=== PATIENT | female | born 1970 | race Caucasian/White ===

== ENCOUNTER → 2016-06-16 | Outpatient (CLI) | payer MEDICAID ==
[~2016-06-16] MED LIST: CLON0.253; ERYTPOW19; Pantoprazole Sodium Sesquihydr PO
[2016-06-16 17:23] LABS: Basophils # (auto) 0.1 uL; Basophils % (auto) 0.5 % (0.0-2.0); Eosinophils # (auto) 0.2 uL; Eosinophils % (auto) 1.9 % (0.0-7.0); Hematocrit 40.3 % (36.0-46.0); Hemoglobin 12.7 g/dL (12.2-16.2); Lymphocytes # (auto) 2.6 uL; Lymphocytes % (auto) 23.7 % (10.0-50.0); Mean Corpuscular Hemoglobin 29.2 pg (28.0-32.0); Mean Corpuscular Hgb Conc. 31.6 g/dL (32.0-36.0); Mean Corpuscular Volume 92.3 fL (80.0-100.0); Mean Platelet Volume 8.3 fL (7.4-10.4); Monocytes # (auto) 0.7 uL; Neutrophils # (auto) 7.4 uL; Neutrophils % (auto) 67.9 % (37.0-80.0); Platelet Count (auto) 372 10^3/uL (140-450); Red Cell Distribution Width 15.4 % (11.6-16.0); White Blood Cell 10.8 10^3/uL (4.4-10.8)
[2016-06-16 17:55] LABS: Albumin 3.3 g/dL (3.4-5.0); Bilirubin, Total 0.3 mg/dL (0.2-1.0); Calcium 8.6 mg/dL (8.5-10.1); Potassium 3.8 mmol/L (3.5-5.1); Total Protein 6.9 g/dL (6.4-8.2)
[2016-06-16 17:59] LABS: Urine Bilirubin Negative (Negative); Urine Color Yellow (Yellow); Urine Glucose Normal (Normal); Urine Ketone Negative (Negative); Urine Nitrite Negative (Negative); Urine RBC 1 /hpf (0 - 4); Urine Squamous Epithelial Cell FEW /hpf (<5); Urine Urobilinogen Normal (Negative); Urine pH 5.5 (5.0-8.0)
[2016-06-16 18:01] LABS: Urine Blood 1+ /uL (Negative)
== END | disposition home or self-care (01) ==
LOC: LAB 16:36
PROVIDERS: ATTEND Internal Medicine
DX: Z00.00 Encounter for general adult medical examination without abnormal findings (principal)
CPT/HCPCS: 36415; 80053; 80061; 81001; 84443; 85025

== ENCOUNTER 2016-07-11 11:25 | Observation (INO) | payer MEDICAID ==
[~2016-07-11] VITALS: Ht 162.6 cm; Wt 61.2 kg
[2016-07-11 14:16] LABS: Basophils # (auto) 0.4 uL; DEFINITIVE VIEW TRANSMISSION; Eosinophils # (auto) 0.1 uL; Eosinophils % (auto) 0.4 % (0.0-7.0); Hematocrit 43.1 % (36.0-46.0); Hemoglobin 14.3 g/dL (12.2-16.2); Lymphocytes # (auto) 2.8 uL; Lymphocytes % (auto) 19.4 % (10.0-50.0); Mean Corpuscular Hemoglobin 29.1 pg (28.0-32.0); Mean Corpuscular Hgb Conc. 33.3 g/dL (32.0-36.0); Mean Corpuscular Volume 87.6 fL (80.0-100.0); Mean Platelet Volume 8.4 fL (7.4-10.4); Monocytes # (auto) 0.6 uL; Monocytes % (auto) 3.8 % (0.0-12.0); Neutrophils # (auto) 10.8 uL; Neutrophils % (auto) 73.4 % (37.0-80.0); Platelet Count (auto) 457 10^3/uL (140-450); Red Cell Distribution Width 15.5 % (11.6-16.0); White Blood Cell 14.6 10^3/uL (4.4-10.8)
[2016-07-11 14:46] LABS: Albumin 3.7 g/dL (3.4-5.0); BUN/Creatinine Ratio 7.8; Bilirubin, Total 0.5 mg/dL (0.2-1.0); Calcium 9.3 mg/dL (8.5-10.1); Potassium 3.5 mmol/L (3.5-5.1); Total Protein 7.8 g/dL (6.4-8.2)
[2016-07-11 17:14] LABS: Amylase 35 U/L (25-115)
[2016-07-11] MEDS ORDERED: cefTRIAXone 1GM/50ML D5W 50 ML IV ONE (17:15)
[2016-07-11 17:18] LABS: INR 1.11 (0.9-1.15); Partial Thromboplastin Time 28.8 sec (22.64-33.71); Prothrombin Time 11.4 sec (9.37-12.3)
[2016-07-11] MEDS ORDERED: KETOROLAC TROMETH 30 MG/ML 1ML VIAL IV ONE (18:15)
[2016-07-11] MEDS ORDERED: SODIUM CHLORIDE 0.9% 1,000 ML IV ONE (18:45)
[2016-07-11] MEDS ORDERED: ALPRAZolam 0.5 MG TAB PO ONE (19:00)
[2016-07-11 19:02] VITALS: BP 92/42
== END 2016-07-11 20:16 | disposition home or self-care (01) | DRG 144 ==
LOC: ER 11:27 → OVERFLOW 16:34 → ER 20:16
PROVIDERS: ADMIT Family Medicine; ATTEND Family Medicine
DX: J20.9 Acute bronchitis, unspecified (principal); F41.9 Anxiety disorder, unspecified; M79.7 Fibromyalgia; F17.210 Nicotine dependence, cigarettes, uncomplicated; Z82.49 Family history of ischemic heart disease and other diseases of the circulatory system; M79.1 Myalgia
CPT/HCPCS: 36415; 71010; 80053; 82150; 83690; 83735; 85025; 85610; 85730; 87040; 96365; 96366; 96375; 99285; G0378; J0696; J1885; J7030

== ENCOUNTER 2017-01-18 10:04 | Inpatient (IN) | payer MEDICAID ==
[~2017-01-18] VITALS: Ht 167.6 cm; Wt 87.6 kg
[2017-01-18] MEDS ORDERED: PROCHLORPERAZINE EDISYLATE 5 MG/ML 2ML VIAL IV ONE (10:15)
[2017-01-18] MEDS ORDERED: HYDROmorphone HCL 2 MG/ML VL IV ONE (10:15)
[2017-01-18] MEDS ORDERED: PANTOPRAZOLE 40 MG/10 ML VIAL IV STA (10:15)
[2017-01-18] MEDS ORDERED: SODIUM CHLORIDE 0.9% 500 ML IVB ONE (10:15)
[2017-01-18 10:35] LABS: Basophils # (auto) 0.2 uL; Basophils % (auto) 1.4 % (0.0-2.0); Eosinophils # (auto) 0 uL; Eosinophils % (auto) 0.3 % (0.0-7.0); Hemoglobin 12.2 g/dL (12.2-16.2); Lymphocytes # (auto) 1.1 uL; Lymphocytes % (auto) 10.1 % (10.0-50.0); Mean Corpuscular Hemoglobin 37.4 pg (28.0-32.0); Mean Corpuscular Hgb Conc. 34.8 g/dL (32.0-36.0); Mean Corpuscular Volume 107.6 fL (80.0-100.0); Mean Platelet Volume 6.9 fL (7.4-10.4); Monocytes # (auto) 0.5 uL; Monocytes % (auto) 4.8 % (0.0-12.0); Neutrophils # (auto) 9.4 uL; Neutrophils % (auto) 83.4 % (37.0-80.0); Nucleated Red Blood Cells % 0.1 %; Platelet Count (auto) 330 10^3/uL (140-450); Red Cell Distribution Width 18.1 % (11.6-16.0); White Blood Cell 11.2 10^3/uL (4.4-10.8)
[2017-01-18 11:01] LABS: Albumin 3.2 g/dL (3.4-5.0); BUN/Creatinine Ratio 8.7; Bilirubin, Total 0.8 mg/dL (0.2-1.0); Calcium 7.7 mg/dL (8.5-10.1); Total Protein 6.9 g/dL (6.4-8.2)
[2017-01-18 11:05] LABS: Potassium 2.6 mmol/L (3.5-5.1)
[2017-01-18] MEDS ORDERED: POTASSIUM CHL 20MEQ/100ML 100 ML IV ONE (11:15)
[2017-01-18] MEDS ORDERED: DOCUSATE SOD 100 MG CAP PO PRN (13:00)
[2017-01-18] MEDS ORDERED: PHYTONADIONE (VIT K)10 MG/ML 1ML VIAL SUBCUT ONE (13:00)
[2017-01-18] MEDS ORDERED: ACETAMINOPHEN 325 MG TAB PO PRN (13:00)
[2017-01-18] MEDS ORDERED: PANTOPRAZOLE 40 MG/10 ML VIAL IV ONE (13:00)
[2017-01-18] MEDS ORDERED: NITROGLYCERIN 0.4 MG SL TAB SL PRN (13:00)
[2017-01-18] MEDS ORDERED: ALUM & MAG HYDROX-SIMETH LIQ(MAALOX) 30 ML PO PRN (13:00)
[2017-01-18] MEDS ORDERED: chlordiazePOXIDE HCL 25 MG CAP PO PRN (13:00)
[2017-01-18] MEDS ORDERED: DEXTROSE (50%) 50ML SYRG IV PRN (13:00)
[2017-01-18] MEDS ORDERED: LORazepam 2MG/ML-1ML VIAL IV PRN (13:00)
[2017-01-18] MEDS ORDERED: TEMAZEPAM 15 MG CAP PO PRN (13:00)
[2017-01-18] MEDS ORDERED: LEVOFLOXACIN 500MG 100 ML IV ONE (13:00)
[2017-01-18] MEDS ORDERED: ATENOLOL 25 MG TAB PO ONE (13:00)
[2017-01-18] MEDS ORDERED: THIAMINE INJ 100 MG, MULTIPLE VITAMIN 10 ML, FOLIC ACID 1 MG, MAGNESIUM SULF SDV 50% 8 ... IV SCH ×5 (13:00)
[2017-01-18] MEDS ORDERED: SODIUM CHLORIDE 0.9% 2,000 ML IV ONE (13:15)
[2017-01-18] MEDS: HYDROmorphone HCL 2 MG/ML VL IV PRN ×4 (13:38→22:48)
[2017-01-18] MEDS: ONDANSETRON HCL 4 MG/2 ML VIAL IV PRN ×3 (13:38→22:48)
[2017-01-18 13:41] LABS: INR 1.1 (0.9-1.15)
[2017-01-18] MEDS: SODIUM CHLORIDE 0.9% 1,000 ML IV SCH ×2 (14:07→21:13)
[2017-01-18] MEDS: metroNIDAZOLE 500MG/100ML 100 ML IV SCH ×2 (14:08→22:16)
[2017-01-18] MEDS: GABAPENTIN 300 MG CAP PO SCH ×2 (14:08→22:16)
[2017-01-18] MEDS: HYDROcodone-ACET 5/325MG TAB PO PRN ×2 (16:11→20:21)
[2017-01-18] MEDS: InsuLIN REG 1unit/0.01ml Soln (100units/ml) SC SCH ×2 (16:41→22:17)
[2017-01-18] MEDS: ACCU-CHEK COMFORT CURVE STRIP VI SCH ×2 (16:41→22:17)
[2017-01-18 16:48] LABS: BUN/Creatinine Ratio 6.3; Calcium 6.8 mg/dL (8.5-10.1)
[2017-01-18] MEDS: clonazePAM 0.5 MG TAB PO PRN (17:18)
[2017-01-18] MEDS: Boost Glucose Control 8 Ounces PO SCH (18:00)
[2017-01-18] MEDS ORDERED: FAMOTIDINE 20 MG TAB PO SCH (22:00)
[2017-01-18] MEDS: ATENOLOL 25 MG TAB PO SCH (22:16)
[2017-01-18 22:33] LABS: Urine Bilirubin Negative (Negative); Urine Blood Negative /uL (Negative); Urine Color Yellow (Yellow); Urine Glucose Normal (Normal); Urine Ketone Negative (Negative); Urine Mucus FEW (None Seen); Urine Nitrite Negative (Negative); Urine RBC 1 /hpf (0 - 4); Urine Squamous Epithelial Cell FEW /hpf (<5); Urine Urobilinogen Normal (Negative)
[2017-01-19] MEDS: HYDROcodone-ACET 5/325MG TAB PO PRN (01:39)
[2017-01-19] MEDS: HYDROmorphone HCL 2 MG/ML VL IV PRN ×5 (04:24→21:48)
[2017-01-19] MEDS: ONDANSETRON HCL 4 MG/2 ML VIAL IV PRN ×5 (04:24→17:46)
[2017-01-19 04:35] LABS: Basophils # (auto) 0 uL; Basophils % (auto) 0.4 % (0.0-2.0); Eosinophils # (auto) 0.2 uL; Eosinophils % (auto) 1.5 % (0.0-7.0); Hematocrit 29.2 % (36.0-46.0); Hemoglobin 10.2 g/dL (12.2-16.2); Lymphocytes # (auto) 2.4 uL; Lymphocytes % (auto) 22.9 % (10.0-50.0); Mean Corpuscular Hemoglobin 38.5 pg (28.0-32.0); Mean Corpuscular Hgb Conc. 35.1 g/dL (32.0-36.0); Mean Corpuscular Volume 109.7 fL (80.0-100.0); Mean Platelet Volume 7.5 fL (7.4-10.4); Monocytes # (auto) 0.6 uL; Monocytes % (auto) 6.3 % (0.0-12.0); Neutrophils # (auto) 7.1 uL; Neutrophils % (auto) 68.9 % (37.0-80.0); Nucleated Red Blood Cells % 0.1 %; Platelet Count (auto) 249 10^3/uL (140-450); Red Cell Distribution Width 18.2 % (11.6-16.0); White Blood Cell 10.3 10^3/uL (4.4-10.8)
[2017-01-19 04:42] LABS: Albumin 2.6 g/dL (3.4-5.0)
[2017-01-19 04:44] LABS: BUN/Creatinine Ratio 5.6
[2017-01-19 04:46] LABS: Bilirubin, Total 1.4 mg/dL (0.2-1.0); Total Protein 5.7 g/dL (6.4-8.2)
[2017-01-19 05:00] LABS: Potassium 2.5 mmol/L (3.5-5.1)
[2017-01-19] MEDS ORDERED: POTASSIUM CHL 20 Meq TABLET PO ONE (05:15)
[2017-01-19] MEDS: InsuLIN REG 1unit/0.01ml Soln (100units/ml) SC SCH ×4 (05:47→22:34)
[2017-01-19] MEDS: ACCU-CHEK COMFORT CURVE STRIP VI SCH ×4 (05:47→22:33)
[2017-01-19] MEDS: SODIUM CHLORIDE 0.9% 1,000 ML IV SCH ×3 (05:54→22:34)
[2017-01-19] MEDS: metroNIDAZOLE 500MG/100ML 100 ML IV SCH ×3 (05:54→21:46)
[2017-01-19] MEDS: GABAPENTIN 300 MG CAP PO SCH ×3 (05:54→21:46)
[2017-01-19] MEDS: clonazePAM 0.5 MG TAB PO PRN ×2 (09:08→23:49)
[2017-01-19] MEDS: PANTOPRAZOLE 40 MG/10 ML VIAL IV SCH (09:09)
[2017-01-19] MEDS: Boost Glucose Control 8 Ounces PO SCH ×3 (09:09→18:19)
[2017-01-19] MEDS: LEVOFLOXACIN 500MG 100 ML IV SCH (09:09)
[2017-01-19] MEDS: ATENOLOL 25 MG TAB PO SCH ×2 (09:09→21:47)
[2017-01-19] MEDS: MULTIPLE VITAMIN TAB PO SCH (09:09)
[2017-01-19] MEDS ORDERED: LABETALOL HCL 5 MG/ML ML 20ML VIAL IV PRN (10:45)
[2017-01-19] MEDS ORDERED: POTASSIUM CHLORIDE 40 MEQ, LIDOCAINE 1% (LOCAL ANESTH.) 4 ML in SODIUM CHL 0.9% 250 ML IV ONE (10:45)
[2017-01-19 10:50] LABS: BUN/Creatinine Ratio 3.3; Calcium 6.6 mg/dL (8.5-10.1)
[2017-01-19 10:52] LABS: Potassium 2.9 mmol/L (3.5-5.1)
[2017-01-19] MEDS: chlordiazePOXIDE HCL 25 MG CAP PO SCH ×7 (11:37→23:48)
[2017-01-19] MEDS: D5W 5% 1,000 ML IV SCH (11:50)
[2017-01-19] MEDS: THIAMINE INJ 100 MG, MULTIPLE VITAMIN 10 ML, FOLIC ACID 1 MG, MAGNESIUM SULF SDV 50% 8 ... IV SCH ×5 (12:00)
[2017-01-19 12:52] VITALS: BP 110/68
[2017-01-19] MEDS ORDERED: MAGNESIUM SULFATE 1GM/100ML 100 ML IV SCH ×2 (13:00→21:00)
[2017-01-19 16:21] VITALS: BP_SYST 133; BP_SYST 144; BP_DIAS 77
[2017-01-19] MEDS ORDERED: ALPR1TAB2 PO (16:52)
[2017-01-19] MEDS ORDERED: HYDR-4663 PO (16:52)
[2017-01-19 21:30] VITALS: BP 104/65
[2017-01-20] VITALS (7 sets, daily range): BP systolic 90–121; BP diastolic 45–71
[2017-01-20] MEDS: HYDROmorphone HCL 2 MG/ML VL IV PRN ×6 (02:58→23:51)
[2017-01-20] MEDS: D5W 5% 1,000 ML IV SCH ×2 (03:06→20:05)
[2017-01-20] MEDS: metroNIDAZOLE 500MG/100ML 100 ML IV SCH ×3 (05:32→21:29)
[2017-01-20] MEDS: chlordiazePOXIDE HCL 25 MG CAP PO SCH ×7 (05:33→23:52)
[2017-01-20] MEDS: GABAPENTIN 300 MG CAP PO SCH ×3 (05:33→21:28)
[2017-01-20 06:01] LABS: Basophils # (auto) 0.1 uL; Basophils % (auto) 0.8 % (0.0-2.0); Eosinophils # (auto) 0.2 uL; Hematocrit 25.2 % (36.0-46.0); Hemoglobin 8.8 g/dL (12.2-16.2); Lymphocytes # (auto) 2.2 uL; Lymphocytes % (auto) 28.1 % (10.0-50.0); Mean Corpuscular Hemoglobin 38.6 pg (28.0-32.0); Mean Corpuscular Hgb Conc. 34.7 g/dL (32.0-36.0); Mean Corpuscular Volume 111.2 fL (80.0-100.0); Mean Platelet Volume 7.6 fL (6.9-10.8); Monocytes # (auto) 0.4 uL; Monocytes % (auto) 5.6 % (0.0-12.0); Neutrophils # (auto) 4.9 uL; Neutrophils % (auto) 62.5 % (37.0-80.0); Nucleated Red Blood Cells % 0.1 %; Platelet Count (auto) 201 10^3/uL (140-450); Red Cell Distribution Width 18.2 % (11.8-14.3); White Blood Cell 7.8 10^3/uL (4.4-10.8)
[2017-01-20] MEDS: SODIUM CHLORIDE 0.9% 1,000 ML IV SCH ×3 (06:29→23:17)
[2017-01-20] MEDS: ACCU-CHEK COMFORT CURVE STRIP VI SCH ×4 (06:30→22:00)
[2017-01-20] MEDS: InsuLIN REG 1unit/0.01ml Soln (100units/ml) SC SCH (06:30)
[2017-01-20 06:35] LABS: Albumin 2.2 g/dL (3.4-5.0); Bilirubin, Total 0.7 mg/dL (0.2-1.0); Calcium 6.5 mg/dL (8.5-10.1); Magnesium 2.5 mg/dL (1.6-2.6); Total Protein 5.3 g/dL (6.4-8.2)
[2017-01-20 06:40] LABS: Potassium 2.6 mmol/L (3.5-5.1)
[2017-01-20] MEDS: POTASSIUM CHLORIDE 40 MEQ, LIDOCAINE 1% (LOCAL ANESTH.) 4 ML in SODIUM CHL 0.9% 250 ML IV SCH ×2 (08:18→12:02)
[2017-01-20] MEDS: Boost Glucose Control 8 Ounces PO SCH ×3 (08:19→17:49)
[2017-01-20] MEDS: HYDROcodone-ACET 5/325MG TAB PO PRN (09:53)
[2017-01-20] MEDS: PANTOPRAZOLE 40 MG/10 ML VIAL IV SCH (09:53)
[2017-01-20] MEDS: MULTIPLE VITAMIN TAB PO SCH (09:53)
[2017-01-20] MEDS: ATENOLOL 25 MG TAB PO SCH ×2 (09:54→21:35)
[2017-01-20] MEDS: LEVOFLOXACIN 500MG 100 ML IV SCH (09:54)
[2017-01-20] MEDS: THIAMINE INJ 100 MG, MULTIPLE VITAMIN 10 ML, FOLIC ACID 1 MG, MAGNESIUM SULF SDV 50% 8 ... IV SCH ×5 (12:30)
[2017-01-20] MEDS: clonazePAM 0.5 MG TAB PO PRN ×2 (14:28→21:27)
[2017-01-20] MEDS: ONDANSETRON HCL 4 MG/2 ML VIAL IV PRN ×2 (19:56→23:51)
[2017-01-21] MEDS: SODIUM CHLORIDE 0.9% 1,000 ML IV SCH (02:48)
[2017-01-21] MEDS: D5W 5% 1,000 ML IV SCH (02:48)
[2017-01-21] MEDS: ONDANSETRON HCL 4 MG/2 ML VIAL IV PRN ×2 (03:57→09:18)
[2017-01-21] MEDS: HYDROmorphone HCL 2 MG/ML VL IV PRN ×5 (03:57→22:36)
[2017-01-21] MEDS: GABAPENTIN 300 MG CAP PO SCH ×3 (05:25→22:34)
[2017-01-21] MEDS: chlordiazePOXIDE HCL 25 MG CAP PO SCH ×4 (05:26→12:45)
[2017-01-21] MEDS: metroNIDAZOLE 500MG/100ML 100 ML IV SCH (05:27)
[2017-01-21 05:30] VITALS: BP 97/54
[2017-01-21] MEDS: ACCU-CHEK COMFORT CURVE STRIP VI SCH ×4 (05:53→22:35)
[2017-01-21] MEDS: HYDROcodone-ACET 5/325MG TAB PO PRN ×2 (05:57→12:45)
[2017-01-21 06:28] LABS: Basophils # (auto) 0.1 uL; Basophils % (auto) 1.1 % (0.0-2.0); Eosinophils # (auto) 0.2 uL; Eosinophils % (auto) 2.5 % (0.0-7.0); Hematocrit 26.9 % (36.0-46.0); Hemoglobin 9.1 g/dL (12.2-16.2); Lymphocytes # (auto) 2.3 uL; Lymphocytes % (auto) 26.9 % (10.0-50.0); Mean Corpuscular Hemoglobin 38.1 pg (28.0-32.0); Mean Corpuscular Hgb Conc. 33.8 g/dL (32.0-36.0); Mean Corpuscular Volume 112.7 fL (80.0-100.0); Mean Platelet Volume 8.7 fL (6.9-10.8); Monocytes # (auto) 0.4 uL; Monocytes % (auto) 4.6 % (0.0-12.0); Neutrophils # (auto) 5.6 uL; Neutrophils % (auto) 64.9 % (37.0-80.0); Nucleated Red Blood Cells % 0.2 %; Platelet Count (auto) 234 10^3/uL (140-450); Red Cell Distribution Width 17.7 % (11.8-14.3); White Blood Cell 8.6 10^3/uL (4.4-10.8)
[2017-01-21 06:41] LABS: Potassium 3.1 mmol/L (3.5-5.1)
[2017-01-21 06:46] LABS: Albumin 2.4 g/dL (3.4-5.0); BUN/Creatinine Ratio 9.8; Calcium 6.8 mg/dL (8.5-10.1)
[2017-01-21 06:53] LABS: Bilirubin, Total 0.3 mg/dL (0.2-1.0); Total Protein 5.7 g/dL (6.4-8.2)
[2017-01-21 08:00] VITALS: BP 97/59
[2017-01-21] MEDS: Boost Glucose Control 8 Ounces PO SCH ×3 (08:06→18:00)
[2017-01-21] MEDS: PANTOPRAZOLE 40 MG/10 ML VIAL IV SCH (09:46)
[2017-01-21] MEDS: MULTIPLE VITAMIN TAB PO SCH (09:46)
[2017-01-21] MEDS: LEVOFLOXACIN 500MG 100 ML IV SCH (09:48)
[2017-01-21] MEDS: ATENOLOL 25 MG TAB PO SCH ×2 (10:00→22:35)
[2017-01-21] MEDS: POTASSIUM CHLORIDE 20 MEQ, LIDOCAINE 1% (LOCAL ANESTH.) 2 ML in SODIUM CHL 0.9% 100 ML IV SCH ×3 (10:02→15:41)
[2017-01-21] MEDS: THIAMINE INJ 100 MG, MULTIPLE VITAMIN 10 ML, FOLIC ACID 1 MG, MAGNESIUM SULF SDV 50% 8 ... IV SCH ×5 (14:00)
[2017-01-21 16:39] VITALS: BP 108/62
[2017-01-21] MEDS: SUCRALFATE 1 GM TAB PO SCH ×2 (18:21→22:34)
[2017-01-21 22:07] VITALS: BP 126/83
[2017-01-22] MEDS: HYDROmorphone HCL 2 MG/ML VL IV PRN ×6 (02:30→23:27)
[2017-01-22] MEDS: clonazePAM 0.5 MG TAB PO PRN ×2 (04:22→10:59)
[2017-01-22] MEDS: D5W 5% 1,000 ML IV SCH (05:23)
[2017-01-22 05:26] VITALS: BP 122/79
[2017-01-22 06:31] LABS: Basophils # (auto) 0 uL; Basophils % (auto) 0.5 % (0.0-2.0); CONDITION Y; DEFINITIVE SEE PRINTOUT; Eosinophils # (auto) 0.2 uL; Eosinophils % (auto) 2.3 % (0.0-7.0); Hematocrit 25.6 % (36.0-46.0); Hemoglobin 8.6 g/dL (12.2-16.2); Lymphocytes # (auto) 1.8 uL; Lymphocytes % (auto) 22.2 % (10.0-50.0); Mean Corpuscular Hemoglobin 37.8 pg (28.0-32.0); Mean Corpuscular Hgb Conc. 33.8 g/dL (32.0-36.0); Mean Platelet Volume 8.3 fL (6.9-10.8); Monocytes # (auto) 0.5 uL; Monocytes % (auto) 6.2 % (0.0-12.0); Neutrophils # (auto) 5.5 uL; Neutrophils % (auto) 68.8 % (37.0-80.0); Platelet Count (auto) 317 10^3/uL (140-450); Red Cell Distribution Width 19.1 % (11.8-14.3); White Blood Cell 7.9 10^3/uL (4.4-10.8)
[2017-01-22] MEDS: GABAPENTIN 300 MG CAP PO SCH ×3 (06:39→22:01)
[2017-01-22] MEDS: SUCRALFATE 1 GM TAB PO SCH ×4 (06:39→22:02)
[2017-01-22] MEDS: ACCU-CHEK COMFORT CURVE STRIP VI SCH ×4 (06:40→22:05)
[2017-01-22 06:41] LABS: Albumin 2.1 g/dL (3.4-5.0); BUN/Creatinine Ratio 5.3; Calcium 7.3 mg/dL (8.5-10.1); Magnesium 2.3 mg/dL (1.6-2.6); Potassium 3.2 mmol/L (3.5-5.1)
[2017-01-22 06:44] LABS: Bilirubin, Total 0.3 mg/dL (0.2-1.0); Total Protein 5.4 g/dL (6.4-8.2)
[2017-01-22] MEDS: Boost Glucose Control 8 Ounces PO SCH ×3 (08:00→18:00)
[2017-01-22 08:12] VITALS: BP 114/70
[2017-01-22] MEDS ORDERED: FUROSEMIDE 20 MG/2 ML VIAL IV ONE (10:00)
[2017-01-22] MEDS: LEVOFLOXACIN 500MG 100 ML IV SCH (10:25)
[2017-01-22] MEDS: PANTOPRAZOLE 40 MG/10 ML VIAL IV SCH (10:25)
[2017-01-22] MEDS: ATENOLOL 25 MG TAB PO SCH ×2 (10:26→22:01)
[2017-01-22] MEDS: MULTIPLE VITAMIN TAB PO SCH (10:26)
[2017-01-22] MEDS ORDERED: POTASSIUM CHLORIDE 40 MEQ, LIDOCAINE 1% (LOCAL ANESTH.) 4 ML in SODIUM CHL 0.9% 250 ML IV ONE (10:30)
[2017-01-22 11:50] VITALS: BP 117/65
[2017-01-22] MEDS: THIAMINE INJ 100 MG, MULTIPLE VITAMIN 10 ML, FOLIC ACID 1 MG, MAGNESIUM SULF SDV 50% 8 ... IV SCH ×5 (13:15)
[2017-01-22 16:21] VITALS: BP 123/61
[2017-01-22] MEDS: ONDANSETRON HCL 4 MG/2 ML VIAL IV PRN ×2 (19:30→23:27)
[2017-01-22 20:00] VITALS: BP 120/78
[2017-01-23] VITALS (7 sets, daily range): BP systolic 112–134; BP diastolic 53–86
[2017-01-23] MEDS: clonazePAM 0.5 MG TAB PO PRN ×2 (02:38→23:57)
[2017-01-23] MEDS: HYDROmorphone HCL 2 MG/ML VL IV PRN ×5 (04:01→21:09)
[2017-01-23] MEDS: ONDANSETRON HCL 4 MG/2 ML VIAL IV PRN (04:01)
[2017-01-23] MEDS: SUCRALFATE 1 GM TAB PO SCH ×4 (05:58→21:50)
[2017-01-23] MEDS: GABAPENTIN 300 MG CAP PO SCH ×3 (05:58→21:50)
[2017-01-23 06:04] LABS: Basophils # (auto) 0.2 uL; Basophils % (auto) 2.9 % (0.0-2.0); CONDITION Y; DEFINITIVE SEE PRINTOUT; Eosinophils # (auto) 0.2 uL; Hemoglobin 9.1 g/dL (12.2-16.2); Lymphocytes # (auto) 2.4 uL; Lymphocytes % (auto) 29.3 % (10.0-50.0); Mean Corpuscular Hemoglobin 37.2 pg (28.0-32.0); Mean Corpuscular Hgb Conc. 33.5 g/dL (32.0-36.0); Mean Corpuscular Volume 111.2 fL (80.0-100.0); Mean Platelet Volume 7.8 fL (6.9-10.8); Monocytes # (auto) 0.7 uL; Monocytes % (auto) 8.9 % (0.0-12.0); Neutrophils # (auto) 4.7 uL; Neutrophils % (auto) 56.9 % (37.0-80.0); Red Cell Distribution Width 18.5 % (11.8-14.3); White Blood Cell 8.3 10^3/uL (4.4-10.8)
[2017-01-23 06:05] LABS: Platelet Count (auto) 355 10^3/uL (140-450)
[2017-01-23 06:10] LABS: Albumin 2.4 g/dL (3.4-5.0); Potassium 3.3 mmol/L (3.5-5.1)
[2017-01-23 06:13] LABS: BUN/Creatinine Ratio 5.8
[2017-01-23 06:25] LABS: Bilirubin, Total 0.2 mg/dL (0.2-1.0); Total Protein 5.7 g/dL (6.4-8.2)
[2017-01-23] MEDS: Boost Glucose Control 8 Ounces PO SCH ×3 (08:00→18:14)
[2017-01-23] MEDS: ATENOLOL 25 MG TAB PO SCH ×2 (10:20→21:56)
[2017-01-23] MEDS: MULTIPLE VITAMIN TAB PO SCH (10:20)
[2017-01-23] MEDS: LEVOFLOXACIN 500MG 100 ML IV SCH (10:20)
[2017-01-23] MEDS: PANTOPRAZOLE 40 MG/10 ML VIAL IV SCH (10:21)
[2017-01-23] MEDS: ACCU-CHEK COMFORT CURVE STRIP VI SCH ×3 (11:30→21:57)
[2017-01-23] MEDS: POTASSIUM CHL 20MEQ/100ML 100 ML IV SCH ×2 (12:00→14:00)
[2017-01-23] MEDS ORDERED: FUROSEMIDE 20 MG/2 ML VIAL IV ONE (12:00)
[2017-01-23] MEDS ORDERED: POTASSIUM CHLORIDE 40 MEQ, LIDOCAINE 1% (LOCAL ANESTH.) 4 ML in SODIUM CHL 0.9% 250 ML IV ONE (12:15)
[2017-01-23] MEDS ORDERED: SPIRONOLACTONE 25 MG TAB PO ONE (12:15)
[2017-01-23] MEDS ORDERED: THIAMINE INJ 100 MG, MULTIPLE VITAMIN 10 ML, FOLIC ACID 1 MG, MAGNESIUM SULF SDV 50% 8 ... IV SCH ×5 (15:00)
[2017-01-23] MEDS: SPIRONOLACTONE 25 MG TAB PO SCH (17:35)
[2017-01-24] MEDS: HYDROmorphone HCL 2 MG/ML VL IV PRN ×2 (03:28→07:38)
[2017-01-24 05:00] VITALS: BP 112/67
[2017-01-24] MEDS: GABAPENTIN 300 MG CAP PO SCH (05:48)
[2017-01-24] MEDS: SPIRONOLACTONE 25 MG TAB PO SCH (05:48)
[2017-01-24] MEDS: SUCRALFATE 1 GM TAB PO SCH ×2 (06:42→10:48)
[2017-01-24] MEDS: ACCU-CHEK COMFORT CURVE STRIP VI SCH ×2 (06:43→11:30)
[2017-01-24 08:00] VITALS: BP 118/74
[2017-01-24] MEDS: Boost Glucose Control 8 Ounces PO SCH (08:00)
[2017-01-24 08:52] VITALS: BP 118/74
[2017-01-24] MEDS: LEVOFLOXACIN 500MG 100 ML IV SCH (10:00)
[2017-01-24] MEDS: PANTOPRAZOLE 40 MG/10 ML VIAL IV SCH (10:47)
[2017-01-24] MEDS: MULTIPLE VITAMIN TAB PO SCH (10:47)
[2017-01-24] MEDS: ATENOLOL 25 MG TAB PO SCH (10:49)
[2017-01-24 11:00] LABS: Albumin 2.4 g/dL (3.4-5.0); BUN/Creatinine Ratio 5.4; Bilirubin, Total 0.2 mg/dL (0.2-1.0); Potassium 3.7 mmol/L (3.5-5.1); Total Protein 5.7 g/dL (6.4-8.2)
[2017-01-24 12:53] VITALS: BP 119/73
[2017-01-24] MEDS ORDERED: THIAMINE INJ 100 MG, MULTIPLE VITAMIN 10 ML, FOLIC ACID 1 MG, MAGNESIUM SULF SDV 50% 8 ... IV SCH ×5 (14:00)
[2017-01-24 14:53] VITALS: BP 118/74
== END 2017-01-24 15:20 | disposition home or self-care (01) | DRG 282 ==
LOC: EDBD 10:04 → ER 10:04 → TELE 10:05 → TELE-WESTW 01-19 12:50
PROVIDERS: ADMIT Internal Medicine; ATTEND Internal Medicine
DX: K85.20 Alcohol induced acute pancreatitis without necrosis or infection (principal); R65.10 Systemic inflammatory response syndrome (SIRS) of non-infectious origin without acute organ dysfunction; E44.0 Moderate protein-calorie malnutrition; D69.6 Thrombocytopenia, unspecified; E83.51 Hypocalcemia; E11.65 Type 2 diabetes mellitus with hyperglycemia; K76.0 Fatty (change of) liver, not elsewhere classified; K29.20 Alcoholic gastritis without bleeding; J44.9 Chronic obstructive pulmonary disease, unspecified; E87.6 Hypokalemia; E86.0 Dehydration; D64.9 Anemia, unspecified; F12.90 Cannabis use, unspecified, uncomplicated; F17.210 Nicotine dependence, cigarettes, uncomplicated; F41.9 Anxiety disorder, unspecified; K86.1 Other chronic pancreatitis; N39.0 Urinary tract infection, site not specified; R60.9 Edema, unspecified; F10.10 Alcohol abuse, uncomplicated; Z82.49 Family history of ischemic heart disease and other diseases of the circulatory system; Z80.9 Family history of malignant neoplasm, unspecified; Z68.31 Body mass index [BMI] 31.0-31.9, adult; Z88.8 Allergy status to other drugs, medicaments and biological substances
CPT/HCPCS: 36415; 76705; 80048; 80053; 81001; 82140; 82150; 82962; 83036; 83690; 83735; 84443; 84702; 85025; 85610; 87086; 87493; 93306; 94761; 96361; 96365; 96367; 96375; C9113; J1815; J1956; J2001; J2405; J3430; J3480; J3490

== ENCOUNTER 2019-05-24 12:39 | Emergency (ER) | payer SELFPAY ==
[~2019-05-24] VITALS: Ht 157.5 cm; Wt 63.5 kg
[~2019-05-24 12:39] MED LIST changes: +ALPR1TAB2 PO; -CLON0.253; -ERYTPOW19; +HYDR-4833 PO
[2019-05-24] MEDS ORDERED: PANTOPRAZOLE 40 MG/10 ML VIAL INJ IV STA (12:47)
[2019-05-24] MEDS ORDERED: SODIUM CHLORIDE 0.9% 1,000 ML IVB ONE (12:47)
[2019-05-24] MEDS ORDERED: MORPHINE SULFATE 4 MG/ML SYR/VIAL IV ONE (13:00)
[2019-05-24] MEDS ORDERED: ONDANSETRON HCL 4 MG/2 ML VIAL IV ONE (13:00)
[2019-05-24 14:06] LABS: Basophils # (auto) 0.1 uL; Eosinophils # (auto) 0.1 uL; Hemoglobin 13.8 g/dL (12.2-16.2); Lymphocytes # (auto) 2.4 uL; Monocytes # (auto) 0.5 uL; White Blood Cell 8.5 10^3/uL (4.4-10.8)
[2019-05-24 14:09] LABS: Basophils % (auto) 0.9 % (0.0-2.0); Eosinophils % (auto) 1.8 % (0.0-7.0); Hematocrit 39.6 % (36.0-46.0); Lymphocytes % (auto) 28.7 % (10.0-50.0); Mean Corpuscular Hemoglobin 35.3 pg (28.0-32.0); Mean Corpuscular Hgb Conc. 34.8 g/dL (32.0-36.0); Mean Corpuscular Volume 101.4 fL (80.0-100.0); Neutrophils # (auto) 5.3 uL; Neutrophils % (auto) 62.6 % (37.0-80.0); Platelet Count (auto) 260 10^3/uL (140-450); Red Cell Distribution Width 16.9 % (11.8-14.3)
[2019-05-24 14:23] LABS: Calcium 8.6 mg/dL (8.5-10.1); Potassium 3.2 mmol/L (3.5-5.1)
[2019-05-24 14:27] LABS: Bilirubin, Total 0.5 mg/dL (0.2-1.0); Total Protein 7.1 g/dL (6.4-8.2)
[2019-05-24 14:44] LABS: Urine Bacteria FEW /hpf (None Seen); Urine Blood Negative /uL (Negative); Urine Mucus FEW (None Seen); Urine Specific Gravity 1.009 (1.001-1.035); Urine WBC 7 /hpf (0 - 5); Urine WBC Clumps PRESENT /hpf (None Seen)
[2019-05-24 21:31] LABS: Amphetamine Screen, Urine POSITIVE (NEGATIVE); Barbiturate Scree,Urine NEGATIVE (NEGATIVE); Benzodiazephine Screen, Urine NEGATIVE (NEGATIVE); Cannabinoid Screen, Urine NEGATIVE (NEGATIVE); Cocaine Screen, Urine NEGATIVE (NEGATIVE)
[2019-05-24 21:38] LABS: Opiate Scree,Urine NEGATIVE (NEGATIVE); Phencyclidine Screen, Urine NEGATIVE (NEGATIVE)
[2019-05-24 22:15] VITALS: BP 142/84
[2019-05-24] MEDS ORDERED: cefTRIAXone 1GM/50ML D5W 50 ML IV ONE (22:15)
[2019-05-24] MEDS ORDERED: LEVOFLOXACIN 500MG 100 ML IV ONE (23:00)
[2019-05-24] MEDS ORDERED: LEVOFLOXACIN 500 MG TAB PO ONE (23:15)
== END 2019-05-24 22:55 | disposition home or self-care (01) ==
LOC: EDBD 12:39 → ER 12:46
DX: K80.20 Calculus of gallbladder without cholecystitis without obstruction (principal); J44.9 Chronic obstructive pulmonary disease, unspecified; I10 Essential (primary) hypertension; Z88.6 Allergy status to analgesic agent
CPT/HCPCS: 36415; 74176; 76705; 80053; 80307; 81001; 83690; 85025; 99284; C9113; J2405; J7030

== ENCOUNTER 2019-11-23 08:08 | Inpatient (IN) | payer MEDICAID ==
[~2019-11-23] VITALS: Ht 157.5 cm; Wt 74.0 kg
[2019-11-23] MEDS ORDERED: KETOROLAC TROMETH 30 MG/ML 1ML VIAL IV ONE ×2 (09:15→12:30)
[2019-11-23] MEDS ORDERED: ONDANSETRON HCL 4 MG/2 ML VIAL IV ONE ×2 (09:15→12:30)
[2019-11-23 09:58] LABS: Basophils # (auto) 0 10 ^3/uL (0-0.2); Basophils % (auto) 0.2 % (0.0-2.0); Eosinophils # (auto) 0 10 ^3/uL (0-0.8); Hematocrit 48.6 % (36.0-46.0); Hemoglobin 16.4 g/dL (12.2-16.2); Lymphocytes # (auto) 0.8 10 ^3/uL (0.4-5.4); Lymphocytes % (auto) 4.4 % (10.0-50.0); Mean Corpuscular Hemoglobin 32.5 pg (28.0-32.0); Mean Corpuscular Hgb Conc. 33.8 g/dL (32.0-36.0); Mean Corpuscular Volume 96.2 fL (80.0-100.0); Monocytes # (auto) 0.7 10 ^3/uL (0-1.3); Monocytes % (auto) 3.5 % (0.0-12.0); Neutrophils # (auto) 17.3 10 ^3/uL (1.6-8.6); Neutrophils % (auto) 91.9 % (37.0-80.0); Nucleated Red Blood Cells % 0.2 %; Platelet Count (auto) 351 10^3/uL (140-450); Red Blood Cells 5.05 10^6/uL (4.0-5.20); Red Cell Distribution Width 14.3 % (11.8-14.3); White Blood Cell 18.8 10^3/uL (4.4-10.8)
[2019-11-23 10:21] LABS: Calcium 9.6 mg/dL (8.5-10.1); Magnesium 1.6 mg/dL (1.6-2.6); Potassium 3.7 mmol/L (3.5-5.1)
[2019-11-23 10:27] LABS: Albumin 3.8 g/dL (3.4-5.0); BUN/Creatinine Ratio 8.8; Bilirubin, Total 1.8 mg/dL (0.2-1.0); Total Protein 8.7 g/dL (6.4-8.2)
[2019-11-23] MEDS ORDERED: LABETALOL HCL 5 MG/ML 4ML SYRINGE IV ONE (10:45)
[2019-11-23 11:22] LABS: Urine Bacteria NONE SEEN /hpf (None Seen); Urine Blood 2+ /uL (Negative); Urine Hyaline Cast FEW /lpf (0 - 2); Urine Mucus FEW (None Seen); Urine Specific Gravity 1.025 (1.001-1.035); Urine WBC 558 /hpf (0 - 5)
[2019-11-23 11:46] LABS: Amphetamine Screen, Urine POSITIVE (NEGATIVE); Benzodiazephine Screen, Urine NEGATIVE (NEGATIVE); Cannabinoid Screen, Urine POSITIVE (NEGATIVE); Cocaine Screen, Urine NEGATIVE (NEGATIVE); Phencyclidine Screen, Urine NEGATIVE (NEGATIVE)
[2019-11-23 11:53] LABS: Barbiturate Scree,Urine NEGATIVE (NEGATIVE); Opiate Scree,Urine NEGATIVE (NEGATIVE)
[2019-11-23] MEDS ORDERED: IOHEXOL 300 MG/ML 100ML BOTTLE IJ ONE (13:07)
[2019-11-23] MEDS ORDERED: ACETAMINOPHEN 500 MG TAB PO PRN (13:30)
[2019-11-23] MEDS: SODIUM CHLORIDE 0.9% 1,000 ML IV SCH ×2 (13:30→21:30)
[2019-11-23] MEDS: HYDROmorphone HCL 2 MG/ML VL IV PRN ×3 (15:21→21:42)
[2019-11-23] MEDS ORDERED: GABA800T97 PO (16:22)
[2019-11-23] MEDS ORDERED: ATEN-60 PO (16:22)
[2019-11-23] MEDS ORDERED: CLON0.5T PO (16:22)
--- NOTE | 2019-11-23 16:41 | NUR ---
Patient arrived to floor. No signs of distress at this time.
--- NOTE | 2019-11-23 16:42 | NUR ---
Paged Dr Griffith regarding a prn for BP. Awaiting a call back.
[2019-11-23 16:59] VITALS: BP 139/70
[2019-11-23 17:00] VITALS: BP 139/70
--- NOTE | 2019-11-23 17:00 | NUR ---
PATIENT STATED THAT SHE HAD "GABAPENTIN" IN HER PURSE. PATIENT REFUSED RN TO DOCUMENT BELONGINGS IN HER PURSE AND REFUSED RN TO TAKE MEDICATIONS TO THE PHARMACY. RN EDUCATED THE PATIENT ON THE RISKS AND BENEFITS OF HAVING MEDICATIONS AT BEDSIDE AND ALLOWING THE RN TO DOCUMENT THE PATIENT BELONGINGS. RN EDUCATED THE PATIENT NOT TO TAKE THE MEDICATIONS AND THE RISKS AND BENEFITS OF TAKING THE PATIENTS OWN MEDICATIONS. PATIENT VERBALIZED UNDERSTANDING AND STATED "I WILL HAVE MY FRIEND HEALTH AND SAFETY COORDINATOR MY PURSE". PATIENT PRECEDED TO CALL THE FRIEND IN FRONT OF THE RN AND VERBALLY ASKED THE FRIEND TO HEALTH AND SAFETY COORDINATOR THE PURSE. RN NOTIFIED, JANET, THE PRIMARY RN.
[2019-11-23] MEDS ORDERED: HYDR-4072 PO (17:22)
[2019-11-23] MEDS: LACTATED RINGER'S 1,000 ML IV SCH ×2 (18:39→21:41)
[2019-11-23] MEDS ORDERED: hydrALAZINE HCL 20 MG/ML VL IV PRN (19:15)
[2019-11-23] MEDS: ONDANSETRON HCL 4 MG/2 ML VIAL IV PRN (21:06)
[2019-11-23 22:00] VITALS: BP 156/100
[2019-11-24] MEDS: HYDROmorphone HCL 2 MG/ML VL IV PRN ×8 (00:50→23:03)
[2019-11-24] MEDS: ONDANSETRON HCL 4 MG/2 ML VIAL IV PRN ×2 (02:13→06:15)
[2019-11-24] MEDS: LACTATED RINGER'S 1,000 ML IV SCH ×3 (04:23→16:52)
[2019-11-24 05:00] VITALS: BP 155/100
[2019-11-24 05:30] LABS: Basophils # (auto) 0.1 10 ^3/uL (0-0.2); Basophils % (auto) 0.5 % (0.0-2.0); Eosinophils # (auto) 0 10 ^3/uL (0-0.8); Hematocrit 43.9 % (36.0-46.0); Lymphocytes # (auto) 0.7 10 ^3/uL (0.4-5.4); Lymphocytes % (auto) 3.9 % (10.0-50.0); Mean Corpuscular Hemoglobin 33.4 pg (28.0-32.0); Mean Corpuscular Hgb Conc. 34.1 g/dL (32.0-36.0); Mean Corpuscular Volume 97.8 fL (80.0-100.0); Monocytes # (auto) 0.8 10 ^3/uL (0-1.3); Monocytes % (auto) 4.1 % (0.0-12.0); Neutrophils # (auto) 17.5 10 ^3/uL (1.6-8.6); Neutrophils % (auto) 91.5 % (37.0-80.0); Nucleated Red Blood Cells % 0.1 %; Platelet Count (auto) 281 10^3/uL (140-450); Red Blood Cells 4.49 10^6/uL (4.0-5.20); Red Cell Distribution Width 14.5 % (11.8-14.3); White Blood Cell 19.2 10^3/uL (4.4-10.8)
[2019-11-24] MEDS: SODIUM CHLORIDE 0.9% 1,000 ML IV SCH (05:30)
[2019-11-24 05:58] LABS: Potassium 3.9 mmol/L (3.5-5.1)
[2019-11-24 06:14] LABS: Albumin 3.2 g/dL (3.4-5.0); BUN/Creatinine Ratio 19.2; Bilirubin, Total 1.3 mg/dL (0.2-1.0); Calcium 8.7 mg/dL (8.5-10.1); Total Protein 7.4 g/dL (6.4-8.2)
--- NOTE | 2019-11-24 07:00 | NUR ---
Opening Shift Note Received report on the patient. Awake lying in bed. Patient shows no signs of distress at this time. Discussed plan of care with the patient. Bed in lowest position, side rails up x2, and call light is within reach.
--- NOTE | 2019-11-24 07:05 | NUR ---
End of Shift Note Endorsed care to dayshift RN. At this time patient has no s/s of distress or SOB.
[2019-11-24 09:00] VITALS: BP 157/98
[2019-11-24 13:00] VITALS: BP 154/95
[2019-11-24] MEDS: PANTOPRAZOLE 40 MG/10 ML VIAL INJ IV SCH (13:32)
--- NOTE | 2019-11-24 15:30 | NUR ---
Nutrition Assessment Notes Please refer to link for full assessment notes. Est Energy needs: 3492-8682 kcals (23-25 kcal/kgBW) Est Protein needs: 53-66 gms/day (0.8-1.0 gm/kgBW) Will continue to monitor and reassess prn. Addendum: 11/24/19 at [address] Amended: Links added.
[2019-11-24 17:00] VITALS: BP 146/89
--- NOTE | 2019-11-24 19:09 | NUR ---
Endorsed patient care to HUBERT [place]. Patient shows no signs of distress.
--- NOTE | 2019-11-24 19:20 | NUR ---
Opening Shift Note Assumed care of patient, awake and alert. No S/S of distress/SOB or pain. Instructed on POC and to call for assist PRN. Bed in lowest locked position, call light within reach, side rails up x2. Will continue to monitor for changes Q1hr and PRN.
[2019-11-24 22:00] VITALS: BP 133/90
[2019-11-25] MEDS: LACTATED RINGER'S 1,000 ML IV SCH ×2 (00:20→06:38)
[2019-11-25] MEDS: HYDROmorphone HCL 2 MG/ML VL IV PRN ×7 (02:07→21:30)
[2019-11-25 05:00] VITALS: BP 147/82
[2019-11-25 05:20] LABS: Basophils # (auto) 0 10 ^3/uL (0-0.2); Basophils % (auto) 0.2 % (0.0-2.0); Eosinophils # (auto) 0 10 ^3/uL (0-0.8); Eosinophils % (auto) 0.1 % (0.0-7.0); Hematocrit 42.8 % (36.0-46.0); Hemoglobin 14.4 g/dL (12.2-16.2); Lymphocytes # (auto) 1.5 10 ^3/uL (0.4-5.4); Lymphocytes % (auto) 9.2 % (10.0-50.0); Mean Corpuscular Hemoglobin 33.3 pg (28.0-32.0); Mean Corpuscular Hgb Conc. 33.8 g/dL (32.0-36.0); Mean Corpuscular Volume 98.6 fL (80.0-100.0); Monocytes % (auto) 6.1 % (0.0-12.0); Neutrophils # (auto) 13.7 10 ^3/uL (1.6-8.6); Neutrophils % (auto) 84.4 % (37.0-80.0); Platelet Count (auto) 181 10^3/uL (140-450); Red Blood Cells 4.34 10^6/uL (4.0-5.20); Red Cell Distribution Width 14.4 % (11.8-14.3); White Blood Cell 16.3 10^3/uL (4.4-10.8)
[2019-11-25 05:42] LABS: Albumin 2.6 g/dL (3.4-5.0); BUN/Creatinine Ratio 19.4; Calcium 8.9 mg/dL (8.5-10.1)
[2019-11-25 05:45] LABS: Bilirubin, Total 1.4 mg/dL (0.2-1.0); Total Protein 6.8 g/dL (6.4-8.2)
--- NOTE | 2019-11-25 07:17 | NUR ---
Paged Dr Griffith regarding low Na. Awaiting a call back.
[2019-11-25] MEDS: PANTOPRAZOLE 40 MG/10 ML VIAL INJ IV SCH (08:30)
[2019-11-25 08:39] VITALS: BP 110/79
[2019-11-25] MEDS: SODIUM CHLORIDE 0.9% 1,000 ML IV SCH ×2 (12:17→18:28)
[2019-11-25 12:43] VITALS: BP 138/83
[2019-11-25 17:08] VITALS: BP 134/72
--- NOTE | 2019-11-25 19:28 | NUR ---
Opening Shift Note Assumed patient care from Evelyn GASPAR. Patient resting w/ eyes closed in bed while supine. Patient has no s/s of distress or SOB at this time. Patient bed locked in lowest position and HOB at 30 degrees, and call light within reach. Will continue to monitor patient Q1 hour.
--- NOTE | 2019-11-25 19:31 | NUR ---
Endorsed care to HUBERT Rojas Patient shows no signs of distress.
[2019-11-25 20:00] VITALS: BP 151/86
[2019-11-25 22:00] VITALS: BP 151/86
[2019-11-26] MEDS: HYDROmorphone HCL 2 MG/ML VL IV PRN ×6 (00:37→17:25)
[2019-11-26] MEDS: SODIUM CHLORIDE 0.9% 1,000 ML IV SCH ×4 (01:02→22:19)
--- NOTE | 2019-11-26 06:30 | NUR ---
IV removal On Left Hand/ Patient complained of Pain IV DC'd with sterile technique, catheter fully intact. Pressure dressing applied to site. Patient tolerated procedure well.
[2019-11-26 07:49] LABS: Basophils # (auto) 0.1 10 ^3/uL (0-0.2); Basophils % (auto) 0.5 % (0.0-2.0); Eosinophils # (auto) 0.1 10 ^3/uL (0-0.8); Hematocrit 35.6 % (36.0-46.0); Hemoglobin 12.1 g/dL (12.2-16.2); Lymphocytes # (auto) 1.7 10 ^3/uL (0.4-5.4); Lymphocytes % (auto) 15.4 % (10.0-50.0); Mean Corpuscular Hemoglobin 33.4 pg (28.0-32.0); Mean Corpuscular Volume 98.2 fL (80.0-100.0); Monocytes # (auto) 0.8 10 ^3/uL (0-1.3); Monocytes % (auto) 7.6 % (0.0-12.0); Neutrophils # (auto) 8.2 10 ^3/uL (1.6-8.6); Neutrophils % (auto) 75.5 % (37.0-80.0); Nucleated Red Blood Cells % 0.1 %; Platelet Count (auto) 159 10^3/uL (140-450); Red Blood Cells 3.63 10^6/uL (4.0-5.20); Red Cell Distribution Width 14.1 % (11.8-14.3); White Blood Cell 10.9 10^3/uL (4.4-10.8)
[2019-11-26 07:53] LABS: Amylase 32 U/L (25-115); Lipase 89 U/L (73-393)
[2019-11-26 07:58] LABS: Potassium 3.1 mmol/L (3.5-5.1)
[2019-11-26 08:00] VITALS: BP 162/105
--- NOTE | 2019-11-26 08:00 | NUR ---
ASSESSMENT NOTE PT IS ALERT ORIENTED X4, RESTING IN BED COMFORTABLY, ABLE TO SELF REPOSITION AND VERBALIS HER DEMANDS, DENIES ANY PAIN AT THIS TIME 0/10, AMBULATE NEEDED, CALL LIGHT WITHIN REACH
[2019-11-26 08:05] LABS: Albumin 2.2 g/dL (3.4-5.0); BUN/Creatinine Ratio 24.6; Bilirubin, Total 0.7 mg/dL (0.2-1.0); Calcium 7.9 mg/dL (8.5-10.1); Total Protein 5.9 g/dL (6.4-8.2)
[2019-11-26 09:00] VITALS: BP 139/73
[2019-11-26] MEDS ORDERED: ATENOLOL 50 MG TAB PO SCH (10:00)
--- NOTE | 2019-11-26 10:05 | NUR ---
DR WAN AT BED SIDE FOLLOWING UP ON PT, PT STATED MY PAIN ALMOST GONE, I NEED TO TAKE MY HOME MEDS PLEASE >, NEW ORDERS OBTAIN FROM DR WAN
[2019-11-26] MEDS: PANTOPRAZOLE 40 MG/10 ML VIAL INJ IV SCH (10:09)
[2019-11-26] MEDS ORDERED: hydrOXYzine 25 MG TAB or CAP PO ONE (10:15)
[2019-11-26] MEDS ORDERED: cefTRIAXone 1GM/50ML D5W 50 ML IV ONE (10:30)
[2019-11-26 13:00] VITALS: BP 130/72
[2019-11-26] MEDS: GABAPENTIN 400 MG CAP PO SCH ×2 (13:38→21:12)
--- NOTE | 2019-11-26 14:48 | NUR ---
Nutrition Followup Notes Pt wt is 68.1 kg Pt is with a Full Liquid diet, with no record of PO intake yet today. Pt with no complaints. Will continue to monitor PO status, skin status, pertinent labs and weight trends. Will f/u in 3-5 days. Est Energy needs: 2212-0769 kcals (23-25 kcal/kgBW) Est Protein needs: 53-66 gms/day (0.8-1.0 gm/kgBW) Will continue to monitor and reassess prn. LABS: K 3.1 L, CA 7.9 L, ALB 2.2 L GI: Pt last BM on 11/21 per RN doc. BS: 22 low risk. Refer to wound assessment report for full details. PES: 1) Increased nutrient needs r/t pt with no PO intake aeb pt is NPO 2) Altered nutrition related lab values r/t current medical condition aeb elev Lipase and Amylase, hyperglycemia, mild hypoalbuminemia Will continue to monitor PO status, skin status, pertinent labs and weight trends. Will f/u in 2-3 days. 1) Continue to carefully monitor pt NPO status 2) Gradually advance pt to oral 2g Sodium diet when medically feasible and as tolerated 3) Refer pt to RD for nutrition education upon D/C 4) Continue current plan of care
[2019-11-26 16:46] VITALS: BP 114/72
--- NOTE | 2019-11-26 18:58 | NUR ---
PT CONTINUE STABLE, CONTINUE MONITORING
--- NOTE | 2019-11-26 20:00 | NUR ---
Opening Shift Note Assumed care of patient, awake and alert. No S/S of distress/SOB or pain. Instructed on POC and to call for assist PRN, will continue to monitor for changes Q1hr and PRN.
[2019-11-26] MEDS: ATENOLOL 25 MG TAB PO SCH (21:45)
[2019-11-26 22:00] VITALS: BP 104/62
[2019-11-26] MEDS ORDERED: traZODone HCL 50 MG TAB PO SCH (22:00)
[2019-11-27] MEDS: HYDROmorphone HCL 2 MG/ML VL IV PRN ×4 (02:33→16:15)
[2019-11-27 05:00] VITALS: BP 102/65
[2019-11-27] MEDS: GABAPENTIN 400 MG CAP PO SCH ×2 (05:29→14:53)
[2019-11-27] MEDS: SODIUM CHLORIDE 0.9% 1,000 ML IV SCH (06:14)
[2019-11-27 06:15] LABS: Basophils # (auto) 0 10 ^3/uL (0-0.2); Basophils % (auto) 0.4 % (0.0-2.0); Eosinophils # (auto) 0.1 10 ^3/uL (0-0.8); Eosinophils % (auto) 1.2 % (0.0-7.0); Hematocrit 33.6 % (36.0-46.0); Hemoglobin 11.3 g/dL (12.2-16.2); Lymphocytes # (auto) 1.6 10 ^3/uL (0.4-5.4); Lymphocytes % (auto) 17.2 % (10.0-50.0); Mean Corpuscular Hemoglobin 33.3 pg (28.0-32.0); Mean Corpuscular Hgb Conc. 33.7 g/dL (32.0-36.0); Mean Corpuscular Volume 98.6 fL (80.0-100.0); Monocytes # (auto) 1.1 10 ^3/uL (0-1.3); Monocytes % (auto) 11.6 % (0.0-12.0); Neutrophils # (auto) 6.5 10 ^3/uL (1.6-8.6); Neutrophils % (auto) 69.6 % (37.0-80.0); Nucleated Red Blood Cells % 0.1 %; Platelet Count (auto) 186 10^3/uL (140-450); Red Blood Cells 3.41 10^6/uL (4.0-5.20); Red Cell Distribution Width 14.5 % (11.8-14.3); White Blood Cell 9.3 10^3/uL (4.4-10.8)
[2019-11-27 06:47] LABS: Potassium 3.2 mmol/L (3.5-5.1)
[2019-11-27 07:00] LABS: Albumin 2.1 g/dL (3.4-5.0); BUN/Creatinine Ratio 13.5; Bilirubin, Total 0.7 mg/dL (0.2-1.0); Calcium 7.9 mg/dL (8.5-10.1); Total Protein 5.9 g/dL (6.4-8.2)
--- NOTE | 2019-11-27 07:00 | NUR ---
Opening Shift Note Received report on the patient. Awake lying in bed. Patient shows no signs of distress at this time. Discussed the plan of care with the patient. Bed in lowest position, side rails up x2, and call light is within reach.
--- NOTE | 2019-11-27 07:22 | NUR ---
Care report given to Calvin Rivas, patient is resting no distress.
--- NOTE | 2019-11-27 07:49 | NUR ---
Paged Dr Griffith regarding the K of 3.2. Awaiting a call back.
[2019-11-27 09:00] VITALS: BP 104/62
[2019-11-27] MEDS ORDERED: cefTRIAXone 1GM/50ML D5W 50 ML IV SCH (09:00)
[2019-11-27] MEDS: PANTOPRAZOLE 40 MG/10 ML VIAL INJ IV SCH (09:17)
[2019-11-27] MEDS: ATENOLOL 25 MG TAB PO SCH (09:17)
--- NOTE | 2019-11-27 09:35 | NUR ---
Dr Marroquin at bedside. New orders received. Per "if patient can tolerated solid foods, patient can DC"
[2019-11-27] MEDS ORDERED: PANTOPRAZOLE 40 MG TAB PO SCH (10:00)
[2019-11-27] MEDS ORDERED: POTASSIUM CHL 20 Meq TABLET PO ONE (10:00)
[2019-11-27] MEDS ORDERED: hydrOXYzine 25 MG TAB or CAP PO SCH (10:00)
[2019-11-27 13:00] VITALS: BP 116/58
[2019-11-27 17:10] VITALS: BP 104/64
--- NOTE | 2019-11-27 18:01 | NUR ---
Dr Griffith at bedside. New orders received.
[2019-11-27 18:16] VITALS: BP 104/64
== END 2019-11-27 18:49 | disposition home or self-care (01) | DRG 720 ==
LOC: ER 08:08 → EDBD 08:08 → TELE 08:09 → TELE-WESTW 16:43
PROVIDERS: ADMIT Internal Medicine; ATTEND Internal Medicine
DX: A41.9 Sepsis, unspecified organism (principal); K85.20 Alcohol induced acute pancreatitis without necrosis or infection; F10.10 Alcohol abuse, uncomplicated; I10 Essential (primary) hypertension; F17.210 Nicotine dependence, cigarettes, uncomplicated; N39.0 Urinary tract infection, site not specified; F12.90 Cannabis use, unspecified, uncomplicated; K80.20 Calculus of gallbladder without cholecystitis without obstruction; N20.0 Calculus of kidney; J44.9 Chronic obstructive pulmonary disease, unspecified; F41.9 Anxiety disorder, unspecified; R16.0 Hepatomegaly, not elsewhere classified; E86.0 Dehydration; Z88.5 Allergy status to narcotic agent; Z80.0 Family history of malignant neoplasm of digestive organs; Z82.49 Family history of ischemic heart disease and other diseases of the circulatory system; Y90.9 Presence of alcohol in blood, level not specified
CPT/HCPCS: 36415; 71045; 74177; 80053; 80307; 80320; 81001; 82150; 83690; 83735; 85025; 93005; 96374; 96375; 96376; 99291; C9113; G0378; J0696; J1885; J2405

== ENCOUNTER 2020-04-04 20:45 | Emergency (ER) | payer MEDICAID ==
[~2020-04-04] VITALS: Ht 157.5 cm; Wt 68.0 kg
[~2020-04-04 20:45] MED LIST changes: -ALPR1TAB2 PO; +ATEN-60 PO; +CLON0.5T PO; +GABA800T97 PO; +HYDR-4072 PO
[2020-04-04 22:44] LABS: Basophils # (auto) 0.1 10 ^3/uL (0-0.2); Basophils % (auto) 0.4 % (0.0-2.0); Eosinophils # (auto) 0 10 ^3/uL (0-0.8); Hemoglobin 14.6 g/dL (12.2-16.2); Lymphocytes # (auto) 1.7 10 ^3/uL (0.4-5.4); Lymphocytes % (auto) 10.2 % (10.0-50.0); Mean Corpuscular Hemoglobin 30.6 pg (28.0-32.0); Mean Corpuscular Hgb Conc. 32.5 g/dL (32.0-36.0); Mean Corpuscular Volume 94.2 fL (80.0-100.0); Monocytes % (auto) 5.9 % (0.0-12.0); Neutrophils # (auto) 13.7 10 ^3/uL (1.6-8.6); Neutrophils % (auto) 83.5 % (37.0-80.0); Nucleated Red Blood Cells % 0.4 %; Platelet Count (auto) 294 10^3/uL (140-450); Red Blood Cells 4.77 10^6/uL (4.0-5.20); Red Cell Distribution Width 14.9 % (11.8-14.3); White Blood Cell 16.4 10^3/uL (4.4-10.8)
[2020-04-04 22:52] LABS: Salicylate 6.4 mg/dL (2.8-20.0)
[2020-04-04 22:54] LABS: BUN/Creatinine Ratio 29.9; Bilirubin, Total 1.5 mg/dL (0.2-1.0); Total Protein 8.2 g/dL (6.4-8.2)
[2020-04-04 22:55] LABS: Acetaminophen < 2.0 ug/mL (10-30)
[2020-04-05] MEDS: LORazepam 0.5 MG TAB PO ONE ×2 (10:00→10:23)
[2020-04-05 12:53] VITALS: BP 125/76
== END 2020-04-05 14:34 | disposition home or self-care (01) ==
LOC: ER 20:45
DX: F20.9 Schizophrenia, unspecified (principal); F41.9 Anxiety disorder, unspecified; J44.9 Chronic obstructive pulmonary disease, unspecified; I10 Essential (primary) hypertension; F17.210 Nicotine dependence, cigarettes, uncomplicated; F12.10 Cannabis abuse, uncomplicated; F15.10 Other stimulant abuse, uncomplicated
CPT/HCPCS: 36415; 80053; 80329; 85025